=== PATIENT | male | born 1955 | race Caucasian/White ===

== ENCOUNTER 2025-09-12 09:02 | Day surgery (SDC) | payer MEDICARE ==
[~2025-09-12] VITALS: Ht 177.8 cm; Wt 114.8 kg
[~2025-09-12 09:02] MED LIST: ATEN25TA PO; ATOR1TAB21 PO; AZEL1SPR4 NARES; LEVO1TAB40 PO; MIDAZOLAM INJ 2 MG/2 ML VIAL As Ordered ONE; MONT10TA97 PO; PHENYLEPHRINE 10% OPHTH SOL 5ML OD PRN
[2025-09-12] MEDS: LIDOCAINE 3.5% 1 ML OPHTH TOPICAL GEL OU ONE (11:09)
[2025-09-12] MEDS: PHENYLEPHRINE 2.5% OPHTH SOL 2ML OD SCH (11:09)
[2025-09-12] MEDS: TROPICAMIDE 1% OPHTH SOLN 15ML OD SCH (11:09)
[2025-09-12] MEDS: CYCLOPENTOLATE 1% OPHTH SOLN 2 ML BTL OD SCH (11:09)
[2025-09-12] MEDS: OFLOXACIN 0.3 % (OCUFLOX) OPTH SOL 5ML OD ONE (11:09)
[2025-09-12] MEDS: CEFUROXIME 1 MG/0.1 ML INTRACAMERAL INJ As Ordered ONE (11:57)
[2025-09-12] MEDS: LIDOCAINE 1% SDV 5 ML VIAL As Ordered ONE (11:57)
[2025-09-12] MEDS: ACETYLCHOLINE INTRAOCULAR SOLN 1% 2ML As Ordered ONE (12:11)
[2025-09-12] MEDS: VISCOAT 40-30MG/ML 0.5ML SYRINGE As Ordered ONE (12:13)
[2025-09-12 12:18] VITALS: BP 122/82; TEMP 97.3; O2SAT 94
== END 2025-09-12 12:29 | disposition home or self-care (01) ==
LOC: M SDC 09:02
PROVIDERS: ATTEND Ophthalmology
DX: H25.11 Age-related nuclear cataract, right eye (principal); I10 Essential (primary) hypertension; E78.00 Pure hypercholesterolemia, unspecified; K21.9 Gastro-esophageal reflux disease without esophagitis; Z79.899 Other long term (current) drug therapy; Z87.891 Personal history of nicotine dependence
CPT/HCPCS: 66984; J0697; J2250; J3010; V2632